=== PATIENT | male | born 1955 | race Two or more races ===

== ENCOUNTER 2024-02-27 22:10 | Emergency (ER) | payer MEDICARE, OTHER, SELFPAY ==
--- NOTE | 2024-02-27 22:12 | XR_ITS ---
Examination: CTA carotids with intravenous contrast CTA brain, head with intravenous contrast. 2-D sagittal, coronal reconstructions. 3-D reconstructions. Exam date and time: February 27, 2024 1023 hrs. Indications: Stroke alert, onset focal neurologic deficit today CTDI: vol (mGy) 10.7 DLP: (mGycm) 426 Technique: Multiple CTA axial brain, head carotid images post intravenous contrast injection 75 cc, Isovue-370. 2-D sagittal, coronal reconstructions. 3-D reconstructions, 3-D post processing including vascular maximum intensity projection images. Low dose protocols were performed. One or more of the following dose reduction techniques were used; automated exposure control, adjustment of the mA and/or KV according to patient size, use of iterative reconstruction technique. Findings: No significant common carotid carotid bifurcation or internal carotid artery stenoses Dominant left vertebral artery with no critical stenoses No cerebral large vessel arterial occlusions or thrombus Impression: No significant neck arterial stenoses No cerebral large vessel arterial occlusions or thrombus
--- NOTE | 2024-02-27 22:12 | XR_ITS ---
Examination: CT brain head without contrast. 2-D sagittal coronal reconstructions Date and time of exam:February 27, 2024 1016 hrs. Indications: Stroke alert, onset left-sided body weakness today CTDI: vol (mGy):40.9 DLP: (mGycm):954 Technique: Multiple CT axial sections of the brain have been obtained, 5 mm slice thickness. Contrast has not been administered. 2-D sagittal, coronal reconstructions have been obtained Low dose protocols were performed. One or more of the following dose reduction techniques were used; automated exposure control, adjustment of the mA and/or KV according to patient size, use of iterative reconstruction technique. Findings: No significant ventricular enlargement. 14 mm hemorrhage in the right basal ganglia No mass effect or midline shift Basal cisterns are not remarkable. Fourth ventricle is midline. Cranial vault intact. Impression: 14 mm acute hemorrhage right basal ganglia
--- NOTE | 2024-02-27 22:12 | EKG_ITS ---
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
--- NOTE | 2024-02-27 22:15 | EDNOTE_ITS ---
ED Weakness RME/HPI General Chief complaint: Weakness Stated complaint: STROKE Time Seen by Provider: 02/27/24 22:14 Arrival date/time: 02/27/24 22:10 Mode of arrival: EMS Limitations: no limitations RME / HPI RME / HPI Narrative: Dr. Montes's Main ED Evaluation: 68yo male with pmhx HTN BIBA from home presents to the ED for a chief complaint of left-sided weakness. LKWT 2130. Per EMS, patient had difficulty ambulating to the [facility]. Patient denies any facial droop, slurred speech or any other associated symptoms. Denies any falls or injuries. No known allergies. Related Data Previous Rx's ?Medication ?Instructions ?Recorded lisinopril 10 mg tablet 10 mg PO QDAY #30 tabs 05/04/22 Allergies Allergy/AdvReac Type Severity Reaction Status Date / Time No Known Allergies Allergy Verified 09/30/22 09:15 Review of Systems Review of Systems Systems Reviewed: All systems reviewed, normal except as documented Past Medical History Past Medical History NEUROLOGIC: Negative Neurological Disorders or Seizures CARDIAC: Positive Cardiac Disorders and Hypertension (PO MED); Negative Congestive Heart Failure RESPIRATORY: Negative Chronic Obstructive Pulmonary Disease (COPD) GASTROINTESTINAL: Negative Gastrointestinal Disorders GENITOURINARY: Negative Genitourinary Disorders or Renal Disease MUSCULOSKELETAL: Negative Musculoskeletal Disorders ENDOCRINE: Negative Endocrine Disorders, Diabetes Mellitus Type 1 or Diabetes Mellitus Type 2 HEMATOLOGIC: Negative Blood Disorders OTHER HISTORY: Negative Hospitalization, Autoimmune Disease, Down Syndrome, Developmental Delay, Shingles, Falls, Blood Transfusions (NA), Blood Transfusion Reaction, Anesthesia Reactions, MRSA, Clostridium Difficile or Cancer Family History FAMILY HISTORY: Negative Family Cardiac Disorders Social History SMOKING STATUS: Never smoker ED Exam General Limitations: Present no limitations General appearance: Present alert and in no apparent distress Head Head exam: Present atraumatic Eye Eye exam: Present normal appearance, PERRL and EOMI ENT ENT exam: Present normal exam, normal oropharynx and mucous membranes moist Neck Neck exam: Present normal inspection, full ROM and trachea midline Chest Chest inspection: Present normal inspection and symmetric chest wall rise Respiratory Respiratory exam: Present normal lung sounds bilaterally Cardiovascular Cardiovascular exam: Present regular rate, normal rhythm and normal heart sounds; Absent irregular rhythm Abdominal Exam Abdominal exam: Present soft and normal bowel sounds Extremities Exam Extremities exam: Present normal inspection, full ROM and other (equal strength to the BUE and BLE) Back Exam Back exam: Present normal inspection and full ROM Neurological Exam Neurological exam: Present alert, oriented X3, CN II-XII intact and other (no facial droop, dysphagia or dysarthria) Psychiatric Psychiatric exam: Present normal affect and normal mood Skin Skin exam: Present warm, dry, intact and normal color Course Course Course Narrative: 2249: Patient started on a nicardipine drip. CTA is pending at this time. Quality Measures Suspected type of Stroke: Hemmorrhagic Tenecteplase given: Reason(s) TPA not given: H/O intracranial hemorrhage, neoplasm, AVM, or aneurysm (blieed on H CT) not given stroke Orders Category Date Time Status Bedside Blood Glucose NOW Care 02/27/24 22:12 Completed Captain Waiter NOW Care 02/27/24 22:12 Completed Continuous Pulse Oximetry NOW Care 02/27/24 22:12 Completed EKG (ED ONLY) *Do not use* NOW Care 02/27/24 22:12 Completed In and Out Catheter NEEDED Care 02/27/24 22:12 Completed Insert IV NOW Care 02/27/24 22:12 Completed NIH Stroke Scale now Care 02/27/24 22:12 Completed NPO NOW Care 02/27/24 22:12 Completed Nurse Swallow Screen x1 Care 02/27/24 22:12 Completed Consult to Neurology / Tele-Neurology Routine Cons 02/27/24 22:[address] angio stroke protocol Stat Exams 02/27/24 22:[address] stroke protocol Stat Exams 02/27/24 22:12 Completed EKG (ED Only) Stat Exams 02/27/24 22:12 Draft CBC Stat Lab 02/27/24 22:35 Completed Comprehensive Metabolic Panel Stat Lab 02/27/24 22:35 Completed Drug Screen,Urine Stat Lab 02/27/24 22:49 Received Magnesium Stat Lab 02/27/24 22:35 Completed Partial Thromboplastin Time Stat Lab 02/27/24 22:35 Completed Prothrombin Time with INR Stat Lab 02/27/24 22:35 Completed Troponin I Stat Lab 02/27/24 22:35 Completed Urinalysis Stat Lab 02/27/24 22:47 Completed Urine Culture Stat Lab 02/27/24 22:47 Received Labetalol IV [Trandate IV] Med 02/27/24 23:33 Discontinued 100 mg .ROUTE .STK-MED ONE Labetalol IV [Trandate IV] Med 02/27/24 23:35 Discontinued 40 mg IVP X1 ONE Nicardipine/Ns 20Mg Ivpb [Cardene Ivpb] Med 02/27/24 22:44 Discontinued 20 mg in 200 ml IV 5 mg/hr Ondansetron Inj [Zofran Inj] Med 02/27/24 22:12 Discontinued 4 mg IV Q4HR PRN Oxygen Delivery NOW RT 02/27/24 22:12 Completed Vital Signs Vital signs: Vital Signs Temperature 98.7 F 02/27/24 22:22 Pulse Rate 89 02/27/24 22:22 Respiratory Rate 18 02/27/24 22:22 Blood Pressure 177/106 H 02/27/24 22:22 Pulse Oximetry (%) 98 02/27/24 22:22 Oxygen Delivery Method Room Air 02/27/24 22:22 Weakness MDM Narrative MDM Narrative:: ED nursing documentation was reviewed including triage complaint, associated symptoms, administration of medications, response to therapy and vital signs. Given the history, physical exam, and review of laboratory and imaging studies the patient is determined to be unsafe for discharge and requires higher level of care. For this reason the patient is being transferred to [transferring hospital] for further diagnostic tests, treatments, stabilization, and monitored response to therapy. I communicated the history, physical exam, pertinent laboratory and imaging studies to the accepting physician. Electronic copies of all emergency department laboratory testing and imaging studies as well as medications ordered and administered are being sent with the patient. Patient is Stable for Transfer. Reason: Neuro Surgery evaluation, basal ganglia bleed Services needed: NS Risks Benefits have been explained Patient data External records reviewed:: [facility] previous records (Per chart review, patient was seen here on 05/04/22 for HTN.) Clinical information provided by:: patient and EMS Social determinants that could affect healthcare access:: none Patient has the following chronic illnesses:: HTN How is presenting disease/condition affected by chronic disease/condition?: uneffected by Evaluation data The following diagnostics were reviewed and interpreted by me:: lab results, radiology exam(s) and EKG tracing(s) Lab and/or radiology exams considered but not ordered:: none Interpretation Summary: CBC is normal, PTT is normal, PT and INR are normal, CMP is normal, Troponin is normal, according to my interpretation. EKG done at 2249, NSR, rate of 94, low voltage, no ST elevations or depressions, QTc: 393, no STEMI, according to my interpretation. I have personally reviewed the radiology data and agree with the radiologist's interpretation below: Telerad Preliminary Report Draft Patient: KEVIN FOREMAN. Record#: [id number] Birthdate: 1955 Age/Sex: 68 / M Location: [facility] Attending Dr: Ordering Physician: Date of Service: Procedure(s): Accession Number(s): cc: ~ CT scan of the head without intravenous contrast (axial sections with sagittal and coronal reformats). February 27, 2024 at 2216 hours Clinical history: Focal neuro deficit, stroke suspected Comparison: No prior study is available for comparison. Findings: Acute intraparenchymal hemorrhage in the right basal ganglia, measuring 1.2 x 1.4 x 1.0 cm. There is no evidence of midline shift. There are periventricular white matter hypodensities, compatible with chronic small vessel ischemia. There is mild volume loss. The calvarium is unremarkable. The mastoid air cells and the visualized paranasal sinuses are clear. Impression: Acute intraparenchymal hemorrhage in the right basal ganglia. Short-term follow- up is recommended. Discussion Details: Results verbally communicated to : Dr. Bryant at 10:30 PM 02/27/2024 Report Electronically Signed By: Guevara Lennon 02/27/2024 10:34:19 PM [EST] ------- [facility] Report Signed Patient: KEVIN FOREMAN. Record#: [id number] Birthdate: 1955 Age/Sex: 68 / M Location: [facility] Attending Dr: Ordering Physician: Monica Denny Date of Service: 02/27/24 Procedure(s): CT angio stroke protocol Accession Number(s): [id number] cc: Monica Denny; Chandrakant Martinez MD; NO PRIMARY/FAMILY,PHYSICIAN~ Examination: CTA carotids with intravenous contrast CTA brain, head with intravenous contrast. 2-D sagittal, coronal reconstructions. 3-D reconstructions. Exam date and time: February 27, 2024 1023 hrs. Indications: Stroke alert, onset focal neurologic deficit today CTDI: vol (mGy) 10.7 DLP: (mGycm) 426 Technique: Multiple CTA axial brain, head carotid images post intravenous contrast injection 75 cc, Isovue-370. 2-D sagittal, coronal reconstructions. 3-D reconstructions, 3-D post processing including vascular maximum intensity projection images. Low dose protocols were performed. One or more of the following dose reduction techniques were used; automated exposure control, adjustment of the mA and/or KV according to patient size, use of iterative reconstruction technique. Findings: No significant common carotid carotid bifurcation or internal carotid artery stenoses Dominant left vertebral artery with no critical stenoses No cerebral large vessel arterial occlusions or thrombus Impression: No significant neck arterial stenoses No cerebral large vessel arterial occlusions or thrombus Dictated By: Chandrakant Martinez MD Signed By: <Electronically signed by Chandrakant Martinez MD in OV> 02/27/24 2316 Medications / Prescriptions Medications or Prescriptions considered but not ordered:: none Medication administrations:: Medication Administration History Discontinued Medications Nicardipine/Sodium Chloride (Cardene Ivpb) 20 mg in 200 mls @ 50 mls/hr IV .Q4H PRN; Protocol PRN Reason: PER PROTOCOL Stop: 03/28/24 22:43 Last Titration: 02/27/24 23:20 Dose: 17.5 mg/hr, 175 mls/hr Documented By: Titration: 02/27/24 23:15 Dose: 15 mg/hr, 150 mls/hr Documented By: Titration: 02/27/24 23:10 Dose: 12.5 mg/hr, 125 mls/hr Documented By: Titration: 02/27/24 23:05 Dose: 10 mg/hr, 100 mls/hr Documented By: Titration: 02/27/24 23:00 Dose: 7.5 mg/hr, 75 mls/hr Documented By: Admin: 02/27/24 22:55 Dose: 5 mg/hr, 50 mls/hr Documented By: EE Labetalol HCl (Labetalol Inj 5 Mg/Ml Vial 20 Ml) 40 mg IVP X1 ONE Stop: 02/27/24 23:36 Labetalol HCl (Labetalol Inj 5 Mg/Ml Vial 20 Ml) Confirm Administered Dose 100 mg .ROUTE .STK-MED ONE Stop: 02/27/24 23:34 Ondansetron HCl (Ondansetron Inj 2 Mg/Ml Inj 2 Ml) 4 mg IV Q4HR PRN PRN Reason: NAUSEA OR VOMITING Stop: 03/28/24 22:11 see above Consultations Consultation(s) initiated? (list below): Yes Consultation #1 (Physician, Specialty, Details): Discussed case with [Dr. Sy] from [teleneurology] regarding [consultation]. Discussed patients ED course, exam findings, labs, and radiology results. Recommends transferring the patient for neurosurgery and keeping the patient's blood pressure less that 140. No tPA at this time. Time: 22:38 Consultation #2 (Physician, Specialty, Details): Discussed case with [Dr. Stallings] from [neurosurgery at [facility]] regarding [transfer]. Discussed patients ED course, exam findings, labs, and radiology results. Accepts the patient for transfer. Time: 23:16 Diagnosis Weakness Differential Diagnosis: other (Stroke, TIA, bleed, electro abnormality, infection) Most likely diagnosis given after review of the tests above:: Right basal ganglia bleed. Stroke Admission Indicated Admission indicated?: not indicated (Patient will be transferred ) Explain why admission is indicated or not indicated:: Transfer Admission Request Was there a request for admission?: No Disposition Plan Disposition Plan: Transfer ([facility] neurosurgery Dr. Stallings accepting physician.) Critical Care Time Critical Care Time Critical Care Time: Yes Total Critical Care Time (min.): 45 Attestation: The high probability of sudden, clinically significant deterioration in the patient?s condition required the highest level of my preparedness to intervene urgently. The services I provided to this patient were to treat and/or prevent clinically significant deterioration. Services included the following: chart data review, reviewing nursing notes and/or old charts, documentation time, insurance consultant collaboration regarding findings and treatment options, medication orders and management, direct patient care, vital sign assessments and ordering, interpreting and reviewing diagnostic studies and lab tests. Aggregate critical care time includes only time during which I was engaged in work directly related to the patient?s care, as described above, whether at bedside or elsewhere in the Emergency Department. It did not include time spent performing other reported procedures or the services of residents, students, nurses or physician assistants. Discharge Plan Plan Patient Disposition: Xfer Acute Care Fac Facility Pt Being Transferred to: [facility] Service Needed for Transfer: Neurosurgery Patient condition on transfer: Stable Prescriptions/Referrals Prescriptions/Med Rec: No Action lisinopril 10 mg tablet 10 mg PO QDAY Qty: 30 0RF Referrals: No Primary/Family,Physician [Primary Care Provider] - In 1 week Problem List Clinical Impression: Basal ganglia hemorrhage, Stroke, Hypertensive intracerebral hemorrhage Patient/Caregiver Discharge Instructions Print Language: Belarusian Stand Alone Forms: Ave Award Info., Patient Portal Info Letter
--- NOTE | 2024-02-27 22:15 | PC.NURSE ---
stroke consult Case # [id number]
[2024-02-27 22:22] VITALS: BP 177/106; PULSE 89; RESP 18; RESP 98; TEMP 37.1; O2SAT 98; BMI 31.5
--- NOTE | 2024-02-27 22:35 | PC.NURSE ---
[facility] FAXED PAPERWORK FOR TRANSFER
--- NOTE | 2024-02-27 22:35 | PRELIM_ITS ---
CT scan of the head without intravenous contrast (axial sections with sagittal and coronal reformats) . February 27, 2024 at 2216 hoursClinical history: Focal neuro deficit, stroke suspectedComparison: N o prior study is available for comparison. Findings:Acute intraparenchymal hemorrhage in the right ba joel ganglia, measuring 1.2 x 1.4 x 1.0 cm.There is no evidence of midline shift. There are periventri cular white matter hypodensities, compatible with chronic small vessel ischemia. There is mild volume loss. The calvarium is unremarkable. The mastoid air cells and the visualized paranasal sinuses are clear.Impression:Acute intraparenchymal hemorrhage in the right basal ganglia. Short-term follow-up i s recommended.Discussion Details: Results verbally communicated to : Dr. Bryant at 10:30 PM 024 Report Electronically Signed By: Guevara Lennon 02/27/2024 10:34:19 PM [EST]
--- NOTE | 2024-02-27 22:40 | PD.TNEURO ---
Tele Neuro Consultation Consultation Date 02/27/24 Most Recent Vital Signs Last Vital Signs Pulse 89 02/27/24 22:22 Resp 18 02/27/24 22:22 BP 177/106 H 02/27/24 22:22 Pulse Ox 98 02/27/24 22:22 O2 Del Method Room Air 02/27/24 22:22 Consultation Narrative [facility] Patient Name:???mati scott Date of :???1955 Identification Number:??? Date of Service:???02/27/2024 22:15:06 Diagnosis:?I61.8 - Other intracerebral hemorrhage Impression: Patient presented with left sided weakness. Head CT shows a small intracerebral hemorrhage. Would recommend aggressive bp control Recommendation: Diagnostic Studies: ?Repeat CT head in first 8-12hrs Laboratory Studies:? INR/PT ? aPTT? CBC Medications:? Hold?antiplatelet?therapy/NSAIDS/Anticoagulation Nursing Recommendations: ? Telemetry, IV Fluids?Avoid dextrose containing fluids, Maintain euglycemia ? Head of bed 30 degrees ? Neuro checks q1-2?hrs?during ICU stay ? Once stable neuro checks q4?hrs ? keep BP less than 140/90's with goal of 130/80s Consultations: ? Need Neurosurgery consultation?STAT ? Recommend Speech therapy if failed dysphagia screen ? Physical therapy/Occupational therapy Disposition: ? Neurology will Follow Metrics: Last Known Well: 02/27/2024 21:00:00 Dispatch Time: 02/27/2024 22:15:06 Arrival Time: 02/27/2024 22:10:00 Initial Response Time: 02/27/2024 22:23:01Symptoms: Left sided weakness. Initial patient interaction: 02/27/2024 22:35:43 NIHSS Assessment Completed: 02/27/2024 22:39:40Patient is not a candidate for Thrombolytic. Thrombolytic Medical Decision: 02/27/2024 22:39:41Patient was not deemed candidate for Thrombolytic because of following reasons: History of previous intracranial hemorrhage, intracranial neoplasm . I personally Reviewed the CT Head and it Showed right subcortical ich. Primary Provider Notified of Diagnostic Impression and Management Plan on: 02/27/2024 22:40:34 History of Present Illness:Patient is a 68 year old Male. Patient was brought by EMS for symptoms of Left sided weakness. Past Medical history of Hypertension presented with left sided weakness. History was provided by the EMS. Last seen normal was around 2100 as it was a witnessed onset. Also patient had trouble walking with left sided weakness. Associated with some pressure headache. ? Past Medical History: ?Hypertension Medications: No Anticoagulant use? No Antiplatelet use Reviewed EMR for current medications Allergies:? Reviewed Social History: Drug Use: No Family History: There is no family history of premature cerebrovascular disease pertinent to this consultation ROS : 14 Points Review of Systems was performed and was negative except mentioned in HPI. Past Surgical History: There Is No Surgical History Contributory To Today?s Visit ? Examination: BP(200/120),?Pulse(95),?Blood Glucose(120) 1A: Level of Consciousness - Alert; keenly responsive?+ 0 1B: Ask Month and Age - Both Questions Right?+ 0 1C: Blink Eyes & Squeeze Hands - Performs Both Tasks?+ 0 2: Test Horizontal Extraocular Movements - Normal?+ 0 3: Test Visual Saha - No Visual Loss?+ 0 4: Test Facial Palsy (Use Grimace if Obtunded) - Normal symmetry?+ 0 5A: Test Left Arm Motor Drift - Drift, but doesn't hit bed?+ 1 5B: Test Right Arm Motor Drift - No Drift for 10 Seconds?+ 0 6A: Test Left Leg Motor Drift - Drift, but doesn't hit bed?+ 1 6B: Test Right Leg Motor Drift - No Drift for 5 Seconds?+ 0 7: Test Limb Ataxia (FNF/Heel-Alcazar) - Ataxia in 1 Limb?+ 1 8: Test Sensation - Mild-Moderate Loss: Less Sharp/More Dull?+ 1 9: Test Language/Aphasia - Normal; No aphasia?+ 0 10: Test Dysarthria - Normal?+ 0 11: Test Extinction/Inattention - No abnormality?+ 0 NIHSS Score:?4 ICH Score: 0 Nila Coma Score:13-15 (0) Age >= 80:No (0) ICH volume >= 30mL:No (0) Intraventricular hemorrhage:No (0) Infratentorial origin of hemorrhage:No (0) Pre-Morbid Modified [place] Scale:0 Points = No symptoms at all This consult was conducted in real time using interactive audio and video technology. Patient was informed of the technology being used for this visit and agreed to proceed. Patient located in hospital and provider located at home/office setting. Due to the immediate potential for life-threatening deterioration due to underlying acute neurologic illness, I spent 30 minutes providing critical care. This time includes time for face to face visit via telemedicine, review of medical records, imaging studies and discussion of findings with providers, the patient and/or family. Dr Vu Sy [facility] For Inpatient follow-up with [facility] physician please call [facility] at . As we are not an outpatient service for any post hospital discharge needs please contact the hospital for assistance. If you have any questions for the [facility] physicians or need to reconsult for clinical or diagnostic changes please contact us via [facility] at .
[2024-02-27 22:49] LABS: Basophils # (Auto) 0.1 Thou/mm3 (0.0-0.2); Basophils % (Auto) 1 % (0-2.5); Eosinophils # (Auto) 0.2 Thou/mm3 (0.0-0.5); Eosinophils % (Auto) 2 % (0-10); Hematocrit 37.9 % (41.0-53.0); Hemoglobin 13.1 g/dL (13.5-16.0); Immature Granulocytes % (Auto) 0 % (0-0); Immature Granulocytes Auto 0.04 Thou/mm3 (0.00-0.00); Lymphocytes # (Auto) 3.7 Thou/mm3 (1.0-4.8); Lymphocytes % (Auto) 37 % (10-50); Mean Corpuscular HGB Conc 34.6 g/dl (31.0-37.0); Mean Corpuscular Hemoglobin 31.3 pg (25.0-35.0); Mean Corpuscular Volume 91 fL (80-100); Monocytes # (Auto) 0.9 Thou/mm3 (0.0-0.8); Monocytes % (Auto) 9 % (0-12); Neutrophils # (Auto) 5.1 Thou/mm3 (1.8-7.7); Neutrophils % (Auto) 51 % (37-80); Nucleated Red Blood Cell % 0 /100 WBC (0); Platelet Count 222 Thou/mm3 (140-440); Red Blood Count 4.19 Miln/mm3 (4.50-5.90)
[2024-02-27 22:50] VITALS: BP 208/110; PULSE 88
--- NOTE | 2024-02-27 22:54 | PC.NURSE ---
I CALLED [facility] AT THIS TIME TO SEE IF THE FLIGHT TEAM IS AVAILABLE TO HELP FLY THIS PT TO A DIFFERENT FACILITY AND I SPOKE WITH MARKO WHO SAID THE TEAM IS AVAILABLE BUT THEY HAVE TO CHECK THE WEATHER AND CALL US BACK.
[2024-02-27 22:55] VITALS: BP 175/93; PULSE 82
[2024-02-27] MEDS: NICARDIPINE/NS 20MG IVPB 20 MG/200 ML BAG 50 MG IV (22:55)
--- NOTE | 2024-02-27 22:55 | PC.NURSE ---
RUST STATED NEEDED HIGHER LEVEL OF CARE
--- NOTE | 2024-02-27 22:56 | PC.NURSE ---
[facility] CONTACTED FOR POSSIBLE TRANSFER, SPOKE WITH HOLLAND
[2024-02-27 22:57] LABS: Partial Thromboplastin Time 28.4 Seconds (22.0-36.0); Prothrombin Time 10.9 Seconds (9.0-12.2)
--- NOTE | 2024-02-27 22:58 | PC.NURSE ---
REACH 82 DECLINED DUE TO WEATHER
[2024-02-27 23:04] LABS: Alanine Aminotransferase 26 U/L (10-49); Albumin, Serum 4.1 gm/dL (3.4-4.8); Albumin/Globulin Ratio 1.4 (1.2-2.2); Alkaline Phosphatase 83 U/L (46-116); Anion Gap 7 (7-16); Aspartate Amino Transferase 31 U/L (0-34); BUN/Creatinine Ratio 14 Ratio (12-20); Bilirubin,Total 0.3 mg/dL (0.3-1.2); Blood Urea Nitrogen 14 mg/dL (9-23); Calcium 9.1 mg/dL (8.3-10.6); Calcium (Corrected) 9.1 mg/dL (8.5-10.1); Carbon Dioxide 26.6 mMol/L (20.0-31.0); Chloride 104 mMol/L (98-107); Glucose 129 mg/dL (74-106); Magnesium 2.2 mg/dL (1.6-2.6); Osmolality,Calculated 278 (275-295); Potassium 3.9 mMol/L (3.4-5.1); Sodium 138 mMol/L (136-145); Total Protein 7.1 gm/dL (5.7-8.2); Troponin I < 0.020 ng/mL (0.0-0.045); eGFR > 60 See Note
[2024-02-27 23:09] LABS: Collection Type, Urine Clean Catch; Squamous Epithelial Cell,Urine 0 /hpf (0-5)
--- NOTE | 2024-02-27 23:13 | PC.NURSE ---
ACCEPTED [facility] ER TO ER DR BARR
[2024-02-27 23:16] LABS: Bilirubin,Urine Negative (Negative); Blood,Urine Negative (Negative); Clarity,Urine Clear (Clear/Hazy); Color,Urine Yellow (Lt Yel-Yel); Glucose, Urine Negative (Negative); Ketones,Urine Negative (Negative); Leukocyte Esterase,Urine Negative (Negative); Nitrite,Urine Negative (Negative); Protein,Urine Negative (Neg - Trace); RBC,Urine < 1 /hpf (0-3); Specific Gravity,Urine 1.016 (1.001-1.035); Urobilinogen,Urine Negative mg/dL (0.0-1.0); WBC,Urine < 1 /hpf (0-5)
[2024-02-27 23:18] VITALS: BP 153/92; PULSE 100; RESP 18; TEMP 37.3; O2SAT 95
--- NOTE | 2024-02-27 23:26 | PC.NURSE ---
called report and spoke to charge nurse Uriel at [facility]. all questions answered.
--- NOTE | 2024-02-27 23:30 | PC.NURSE ---
DR BARRETT INFORMED PT IS MAXED OUT ON NICARDIPINE DRIP 15MG/HR AND BLOOP PRESSURE WRITTEN MEDICATION ORDERS GIVEN FOR TRANSPORT.
[2024-02-27 23:59] VITALS: BP 188/95; PULSE 109
[2024-02-27] MEDS: LABETALOL INJ 5 MG/ML VIAL 20 ML 40 MG IVP (23:59)
[2024-02-28 00:15] LABS: Amphetamine/Methamp Scrn,U Negative (Negative); Barbiturate Screen,Urine Negative (Negative); Benzodiazepines Screen,Urine Negative (Negative); Benzoylecgonine Screen, Ur Negative (Negative); Fentanyl Screen,Urine Negative (Negative); Opiate Screen,Urine Negative (Negative); THC Screen,Urine Negative (Negative)
== END 2024-02-27 23:32 | disposition short-term general hospital (02) ==
PROVIDERS: Nurse Practitioner Family; Emergency Provider Emergency Medicine
DX: I61.0 Nontraumatic intracerebral hemorrhage in hemisphere, subcortical (principal); I10 Essential (primary) hypertension; Z75.1 Person awaiting admission to adequate facility elsewhere
CPT/HCPCS: 36415; 70450; 70496; 70498; 80053; 80307; 81001; 83735; 84484; 84703; 85025; 85610; 85730; 87086; 93005; 96365; 99291; A4649; J2404; J3490; Q9967; J1920

== ENCOUNTER → 2024-05-25 | Outpatient (CLI) | payer OTHER, SELFPAY ==
[2024-05-25 09:09] LABS: Collection Type, Urine Clean Catch; Squamous Epithelial Cell,Urine 0 /hpf (0-5)
[2024-05-25 09:51] LABS: Basophils # (Auto) 0.1 Thou/mm3 (0.0-0.2); Basophils % (Auto) 1 % (0-2.5); Eosinophils # (Auto) 0.1 Thou/mm3 (0.0-0.5); Eosinophils % (Auto) 1 % (0-10); Hematocrit 38.4 % (41.0-53.0); Hemoglobin 12.9 g/dL (13.5-16.0); Immature Granulocytes % (Auto) 0 % (0-0); Immature Granulocytes Auto 0.03 Thou/mm3 (0.00-0.00); Lymphocytes # (Auto) 2.5 Thou/mm3 (1.0-4.8); Lymphocytes % (Auto) 26 % (10-50); Mean Corpuscular HGB Conc 33.6 g/dl (31.0-37.0); Mean Corpuscular Hemoglobin 30.9 pg (25.0-35.0); Mean Corpuscular Volume 92 fL (80-100); Monocytes # (Auto) 0.7 Thou/mm3 (0.0-0.8); Monocytes % (Auto) 7 % (0-12); Neutrophils # (Auto) 6.4 Thou/mm3 (1.8-7.7); Neutrophils % (Auto) 66 % (37-80); Nucleated Red Blood Cell % 0 /100 WBC (0); Platelet Count 244 Thou/mm3 (140-440); RDW Standard Deviation 43.2 fL (35.1-43.9); Red Blood Count 4.17 Miln/mm3 (4.50-5.90); White Blood Count 9.7 Thou/mm3 (3.8-10.6)
[2024-05-25 09:54] LABS: Bilirubin,Urine Negative (Negative); Blood,Urine Negative (Negative); Clarity,Urine Clear (Clear/Hazy); Color,Urine Colorless (Lt Yel-Yel); Glucose, Urine Negative (Negative); Ketones,Urine Negative (Negative); Leukocyte Esterase,Urine Negative (Negative); Nitrite,Urine Negative (Negative); Protein,Urine Negative (Neg - Trace); RBC,Urine 2 /hpf (0-3); Specific Gravity,Urine 1.014 (1.001-1.035); Urobilinogen,Urine Negative mg/dL (0.0-1.0); WBC,Urine < 1 /hpf (0-5)
[2024-05-25 10:12] LABS: Alanine Aminotransferase 24 U/L (10-49); Albumin, Serum 4.4 gm/dL (3.4-4.8); Albumin/Globulin Ratio 1.6 (1.2-2.2); Alkaline Phosphatase 95 U/L (46-116); Anion Gap 7 (7-16); Aspartate Amino Transferase 21 U/L (0-34); BUN/Creatinine Ratio 16 Ratio (12-20); Bilirubin,Total 0.8 mg/dL (0.3-1.2); Blood Urea Nitrogen 14 mg/dL (9-23); Calcium 9.6 mg/dL (8.3-10.6); Calcium (Corrected) 9.6 mg/dL (8.5-10.1); Carbon Dioxide 27.8 mMol/L (20.0-31.0); Cardiac Risk Estimate 2.7 RATIO (4.0-6.7); Chloride 105 mMol/L (98-107); Cholesterol 117 mg/dL (132-200); Creatinine (Component) 0.9 mg/dL (0.6-1.3); Globulin 2.7 gm/dL (2.3-3.5); Glucose 104 mg/dL (74-106); HDL Cholesterol 44 mg/dL (40-60); LDL Cholesterol,Calculated 59 mg/dL (0-130); Osmolality,Calculated 279 (275-295); Potassium 4.4 mMol/L (3.4-5.1); Sodium 140 mMol/L (136-145); Total Protein 7.1 gm/dL (5.7-8.2); Triglycerides 71 mg/dL (30-150); eGFR > 60 See Note
== END | disposition home or self-care (01) ==
PROVIDERS: PCP Family Medicine; Referring Provider Family Medicine; Visit Provider Family Medicine
DX: Z00.00 Encounter for general adult medical examination without abnormal findings (principal); E78.2 Mixed hyperlipidemia; I10 Essential (primary) hypertension
CPT/HCPCS: 36415; 80053; 80061; 81001; 85025

== ENCOUNTER → 2024-08-24 | Outpatient (CLI) | payer OTHER, SELFPAY ==
--- NOTE | 2024-08-24 13:00 | XR_ITS ---
Examination: Bone densitometry Date and time of exam:August 24, 2024 1322 hours INDICATIONS: 68-year-old male with diagnosis age related osteoporosis Technique: Lumbar spine and hip total bone mineralization values of an calculated. Peak reference and age match control results have been displayed. Findings: Lumbar spine total bone mineralization is1.424 gm/cm2. This is 3.0 standard deviations above peak reference. This is 3.8 standard deviations above age-matched controls. Hip total bone mineralization is 1.247 gm/cm2 This is 1.5 standard deviations above peak reference. This is 2. standard deviations above age-matched controls Impression: There is normal mineralization based on lumbar spine measurements. There is normal mineralization based on hip measurements
== END | disposition home or self-care (01) ==
PROVIDERS: PCP Family Medicine; Referring Provider Family Medicine; Visit Provider Family Medicine
DX: M81.0 Age-related osteoporosis without current pathological fracture (principal)
CPT/HCPCS: 77080

== ENCOUNTER → 2024-12-23 | Outpatient (CLI) | payer OTHER, SELFPAY ==
[2024-12-23 11:10] LABS: Alanine Aminotransferase 30 U/L (10-49); Albumin, Serum 4.5 gm/dL (3.4-4.8); Albumin/Globulin Ratio 1.5 (1.2-2.2); Alkaline Phosphatase 97 U/L (46-116); Anion Gap 9 (7-16); Aspartate Amino Transferase 35 U/L (0-34); BUN/Creatinine Ratio 10 Ratio (12-20); Bilirubin,Total 1.1 mg/dL (0.3-1.2); Blood Urea Nitrogen 11 mg/dL (9-23); Calcium 9.5 mg/dL (8.3-10.6); Calcium (Corrected) 9.5 mg/dL (8.5-10.1); Carbon Dioxide 28.6 mMol/L (20.0-31.0); Cardiac Risk Estimate 3.2 RATIO (4.0-6.7); Chloride 105 mMol/L (98-107); Cholesterol 155 mg/dL (132-200); Creatinine (Component) 1.1 mg/dL (0.6-1.3); Globulin 3.0 gm/dL (2.3-3.5); Glucose 100 mg/dL (74-106); HDL Cholesterol 49 mg/dL (40-60); LDL Cholesterol,Calculated 87 mg/dL (0-130); Osmolality,Calculated 284 (275-295); Potassium 4.5 mMol/L (3.4-5.1); Sodium 143 mMol/L (136-145); Total Protein 7.5 gm/dL (5.7-8.2); Triglycerides 95 mg/dL (30-150); eGFR > 60 See Note
== END | disposition home or self-care (01) ==
LOC: COPL 09:12
PROVIDERS: PCP Family Medicine; Referring Provider Family Medicine; Visit Provider Family Medicine
DX: I10 Essential (primary) hypertension (principal); E78.2 Mixed hyperlipidemia
CPT/HCPCS: 36415; 80053; 80061